=== PATIENT | male | born 1955 | race Caucasian/White ===

== ENCOUNTER → 2017-09-04 | Outpatient (CLI) | payer OTHER ==
[~2017-09-04] MED LIST: NS 250 ML IV 250 ML IV ONE
[2017-09-04 10:21] LABS: ALANINE AMINOTRANSFERASE 42 Units/L (12-78); ALBUMIN 4.1 g/dL (3.4-5.0); ALKALINE PHOSPHATASE 77 Units/L (46-116); ASPARTATE AMINO TRANSFERASE 32 Units/L (15-37); BLOOD UREA NITROGEN 17 mg/dL (7-18); CALCIUM 9.2 mg/dL (8.5-10.1); CARBON DIOXIDE 28.9 mmol/L (21-32); CHLORIDE 106 mmol/L (98-107); CREATININE 0.91 mg/dL (0.70-1.30); SODIUM 142 mmol/L (136-145); TOTAL PROTEIN 8.1 g/dL (6.4-8.2); eGFR BLACK RACES > 60 (>60); eGFR NON BLACK RACES > 60 (>60)
--- NOTE | 2017-09-05 13:57 | CT ---
Examination: CT of the soft tissues of the neck with and without contrast. Clinical history: Mass on back of neck. Technique: Multiple axial images were obtained from the skull base to the thoracic inlet, following t he intravenous administration of 100 mL of Omnipaque 350. Sagittal and coronal reformatted images wer e obtained. Dose reduction techniques including automated exposure control (AEC) and adjustment of mA and kV were utilized. Comparison: None available. Findings: A BB marker was placed on the area of palpable concern at the posterior left neck. The BB marker hung esponds with a 9.3 x 2.3 x 4.3 cm fatty mass seen within the subcutaneous fat of the posterior left n tushar. Findings are consistent with a benign lipoma. There is a small 1.2 cm nodular area of mucosal thickening associated with the inferior aspect of the left maxillary sinus, likely representing a mucous retention cyst or polyp. The visualized portions of the brain and lung apices are unremarkable. The thyroid, parotid and submandibular glands are within normal limits. The nasopharynx, oropharynx, base of the tongue, hypopharynx, larynx and subglottic regions are withi n normal limits. Scattered small level 2 lymph nodes are seen in the left and right neck. No enlarged lymph nodes, by CT criteria, are noted in the anterior neck. Mild degenerative changes are noted in the spine. No acute osseous abnormality is noted. Impression: 1. Benign lipoma in the left neck, corresponding with the palpable area of concern. 2. Mucous retention cyst versus polyp in the left maxillary sinus. Reported By:
== END ==
LOC: RAD 09:17
PROVIDERS: ATTEND Nurse Practitioner Family
DX: R22.1 Localized swelling, mass and lump, neck (principal); Z85.820 Personal history of malignant melanoma of skin
CPT/HCPCS: 36415; 70491; 80053; A4222